=== PATIENT | male | born 1950 | race Native Hawaiian/Other Pacific Islander ===

== ENCOUNTER 2016-12-26 06:21 | Day surgery (SDC) | payer OTHER ==
[2016-12-26 06:47] VITALS: BMI 28.7
[2016-12-26 07:04] VITALS: TEMP 97.5
[2016-12-26] MEDS ORDERED: Lactated Ringer's 1,000 ML IV ONE (08:10)
[2016-12-26] MEDS ORDERED: Propofol 10 mg/ml Inj (20 ML) ONE (08:12)
[2016-12-26] MEDS ORDERED: Lidocaine Hydrochloride 5 ML INJ ONE (08:12)
[2016-12-26 08:39] VITALS: O2SAT 100
[2016-12-26 09:06] VITALS: RESP 15
[2016-12-26 09:27] VITALS: BP 148/77; PULSE 56
== END 2016-12-26 09:24 | disposition home or self-care (01) ==
LOC: C.ENDO 06:21
PROVIDERS: ATTEND Internal Medicine Gastroenterology
DX: K29.50 Unspecified chronic gastritis without bleeding (principal)
CPT/HCPCS: 43239; 88305; J2704; J7120